=== PATIENT | male | born 1950 | race Caucasian/White ===

== ENCOUNTER 2024-11-08 11:13 | Emergency (ER) | payer MEDICARE ==
[~2024-11-08] VITALS: Ht 165.1 cm; Wt 74.8 kg
[2024-11-08] MEDS ORDERED: DIATRIZOATE MEGL/DIATRIZOA SOD 30 ML BTL PO ONE (12:27)
[2024-11-08] MEDS ORDERED: IOPAMIDOL 370 MG/ML 100 ML INFUS..BTL INJ ONE (12:27)
[2024-11-08] MEDS: ACETAMINOPHEN 325 MG TAB PO ONE (12:28)
[2024-11-08] MEDS: SODIUM CHLORIDE 0.9% 1000ML 1,000 ML IV ONE (12:29)
[2024-11-08 12:55] LABS: BASOPHILS % 0.4 % (0.0-1.0); EOSINOPHILS % 0.9 % (0.0-6.0); HEMATOCRIT 48.3 % (38.2-49.6); HEMOGLOBIN 15.1 g/dL (14.0-18.0); LYMPHOCYTES # (AUTO) 1.3 (1.0-3.2); LYMPHOCYTES % 26.8 % (18.0-39.1); MEAN CORPUSCULAR HEMOGLOBIN 29.7 pg (28-32); MEAN CORPUSCULAR HGB CONC 31.3 g/dL (31-35); MEAN CORPUSCULAR VOLUME 94.9 fL (81-99); MONOCYTES # (AUTO) 0.6 (0.2-0.8); MONOCYTES % 13.6 % (4.4-11.3); NEUTROPHILS # (AUTO) 2.7 (2.1-6.9); PLATELET COUNT 162 x10e3/uL (140-360); RED BLOOD COUNT 5.09 x10e6/uL (4.3-5.7); RED CELL DISTRIBUTION WIDTH 16.2 % (11.7-14.4)
[2024-11-08 13:12] LABS: BILIRUBIN,URINE NEGATIVE (NEGATIVE); CLARITY,URINE CLEAR (CLEAR); COLOR,URINE AMBER (YELLOW); GLUCOSE, URINE NEGATIVE (NEGATIVE); KETONES,URINE TRACE (NEGATIVE); LEUKOCYTE ESTERASE ,URINE NEGATIVE (NEGATIVE); NITRITE,URINE NEGATIVE (NEGATIVE); PH,URINE 5.5 (5 - 7); PROTEIN,URINE DIPSTICK >=300 (NEGATIVE); URINE UROBILINOGEN 0.2 mg/dL (0.2 - 1)
[2024-11-08 13:26] LABS: BACTERIA,URINE MODERATE /HPF; EPITHELIAL CELLS,URINE RARE /LPF; RBC,URINE 0-5 /HPF (0-5); WBC,URINE (MAN) 0-5 /HPF (0-5)
[2024-11-08 13:37] LABS: ALBUMIN 3.1 g/dL (3.5-5.0); ALBUMIN/GLOBULIN RATIO 0.8 (0.8-2.0); ANION GAP 19.2 mmol/L (8-16); BILIRUBIN,TOTAL 0.5 mg/dL (0.2-1.2); CALCIUM 9.8 mg/dL (8.4-10.2); CREATININE, SERUM 0.8 mg/dL (0.72-1.25); POTASSIUM 4.2 mmol/L (3.5-5.1); TOTAL PROTEIN 7.1 g/dL (6.5-8.1)
[2024-11-08] MEDS ORDERED: COLACE100 M1 PO (15:14)
[2024-11-08] MEDS ORDERED: GOLYTELY SOLU4000 M1 PO (15:14)
[2024-11-08 15:25] VITALS: PULSE 83; RESP 15; TEMP 98
[2024-11-08 15:31] VITALS: BP 146/91; PULSE 83; RESP 15; TEMP 98; O2SAT 94
== END 2024-11-08 15:35 | disposition home or self-care (01) ==
LOC: ER 11:39
DX: K59.00 Constipation, unspecified (principal); K76.9 Liver disease, unspecified; I10 Essential (primary) hypertension; J44.9 Chronic obstructive pulmonary disease, unspecified; I25.2 Old myocardial infarction; Z95.5 Presence of coronary angioplasty implant and graft; Z95.1 Presence of aortocoronary bypass graft; Z86.73 Personal history of transient ischemic attack (TIA), and cerebral infarction without residual deficits
CPT/HCPCS: 36415; 74177; 80053; 81001; 81003; 83690; 85025; 99284; J7030; Q9963; Q9967